=== PATIENT | female | born 1955 | race African-American/Black ===

== ENCOUNTER → 2016-06-25 | Outpatient (CLI) | payer MEDICARE ==
[~2016-06-25] MED LIST: ALBU1AER INH; ATEN-104 PO; BACT2OIN TOP; CLON0.2T PO; CVS20TAB OR; FLEX10TA PO; FLUO20CA3 PO; FURO20TA PO; GABA600T OR; GEMF600T PO; GLIM4TAB PO; HYDR50 PO; KLOR8TAB PO; LEFL20TA7 PO; LOSA100T PO; MEVA40TA PO; OMEG100010; PERC10TA27 PO; PHEN12.5 RE; PRED1 PO; ROPI4TAB PO; [UNRECOGNIZED DRUG - OTHER]
[2016-06-25 13:36] LABS: AUTOMATED NEUTROPHIL # 2.5 TH/MM3 (1.8-7.7); BASOPHIL # 0.1 TH/MM3 (0-0.2); EOSINOPHIL # 0.2 TH/MM3 (0-0.4); EOSINOPHIL % 3.6 % (0.0-4.0); HEMATOCRIT 37.4 % (35.0-46.0); HEMO FLAGS DIFF FINAL; LYMPH % 47.6 % (9.0-44.0); LYMPHOCYTE # 3.2 TH/MM3 (1.0-4.8); MEAN CELL VOLUME 97.5 FL (80.0-100.0); MEAN CORPUSCULAR HEMOGLOBIN 32.2 PG (27.0-34.0); MONO % 10.8 % (0.0-8.0); PLATELET COUNT 353 TH/MM3 (150-450); RED BLOOD COUNT 3.84 MIL/MM3 (4.00-5.30); RED CELL DISTRIBUTION WIDTH 14.2 % (11.6-17.2); WHITE BLOOD COUNT 6.7 TH/MM3 (4.0-11.0)
[2016-06-25 13:47] LABS: ALT (GPT) 28 U/L (10-53); ANION GAP 6 MEQ/L (5-15); AST (GOT) 21 U/L (15-37); BICARBONATE 31.3 MEQ/L (21.0-32.0); BLOOD UREA NITROGEN 14 MG/DL (7-18); CHLORIDE 104 MEQ/L (98-107); GLOMERULAR FILTRATION RATE 103 ML/MIN (>89); GLUCOSE,FASTING 113 MG/DL (74-99); POTASSIUM 4.5 MEQ/L (3.5-5.1); SODIUM (NA) 141 MEQ/L (136-145)
[2016-06-25 13:49] LABS: ALKALINE PHOSPHATASE 89 U/L (45-117); CREATINE KINASE 279 U/L (26-192); TOTAL BILIRUBIN ADULT 0.3 MG/DL (0.2-1.0)
[2016-06-25 14:19] LABS: CKMB 3.5 NG/ML (0.5-3.6)
== END ==
LOC: CLAB 13:02
PROVIDERS: ATTEND Allergy & Immunology
DX: L40.50 Arthropathic psoriasis, unspecified (principal)
CPT/HCPCS: 36415; 80053; 82550; 82552; 85025